=== PATIENT | female | born 1935 | race Caucasian/White ===

== ENCOUNTER → 2024-03-14 14:12 | Outpatient (REF) | payer MEDICARE, OTHER, SELFPAY ==
[2024-03-14 14:26] LABS: Hematocrit 28.3 % (37.0-47.0); Hemoglobin 9.5 g/dL (12.0-16.0); Mean Corp Hgb Conc. 33.6 g/dL (33.0-37.0); Mean Corpuscular Hgb 29.3 pg (27.0-31.0); Mean Corpuscular Volume 87.3 fL (81.0-99.0); Mean Platelet Volume 10.8 fL (7.4-10.4); Platelet Count 232 10^3/uL (130-400); Red Blood Cell Count 3.24 10^6/uL (4.20-5.40); Red Cell Dist. Width 13.6 % (11.5-14.5)
[2024-03-14 14:46] LABS: ALT (SGPT) 11 U/L (0-35); AST (SGOT) 22 U/L (14-36); Albumin 3.2 g/dl (3.5-5.0); Alkaline Phosphatase 66 U/L (38-126); Blood Urea Nitrogen 30 mg/dl (7-17); Carbon Dioxide 19 mmol/L (22-30); Chloride 111 mmol/L (98-107); Glucose 77 mg/dl (70-99); Potassium 5.5 mmol/L (3.5-5.1); Sodium 137 mmol/L (135-145); Total Bilirubin 0.2 mg/dl (0.2-1.3); Total Protein 5.6 g/dl (6.3-8.2); eGFR 39.55
[2024-03-14 15:04] LABS: Free T4 1.05 ng/dl (0.78-2.19); Vitamin D, 25-OH*** 81.6 ng/mL (30-80)
[2024-03-14 15:17] LABS: TSH 1.39 uIU/ml (0.47-4.68)
== END ==
LOC: OLABLV 14:12
PROVIDERS: ATTENDING PHYSICIAN Nurse Practitioner Gerontology
DX: I10 Essential (primary) hypertension (principal); F03.B18 Unspecified dementia, moderate, with other behavioral disturbance; Z13.29 Encounter for screening for other suspected endocrine disorder; E55.9 Vitamin D deficiency, unspecified; Q39.3 Congenital stenosis and stricture of esophagus; K21.9 Gastro-esophageal reflux disease without esophagitis
CPT/HCPCS: 36415; 80053; 82306; 84439; 84443; 85027

== ENCOUNTER → 2024-03-28 12:38 | Outpatient (REF) | payer MEDICARE, OTHER, SELFPAY ==
[2024-03-28 14:29] LABS: Potassium 5.7 mmol/L (3.5-5.1)
== END ==
LOC: OLABLV 12:38
PROVIDERS: ATTENDING PHYSICIAN Nurse Practitioner Gerontology; FAMILY PHYSICIAN Family Medicine
DX: E87.5 Hyperkalemia (principal)
CPT/HCPCS: 36415; 84132

== ENCOUNTER → 2024-05-09 11:43 | Outpatient (REF) | payer MEDICARE, OTHER, SELFPAY ==
[2024-05-09 12:54] LABS: Blood Urea Nitrogen 25 mg/dl (7-17); Calcium 9.1 mg/dl (8.4-10.2); Carbon Dioxide 20 mmol/L (22-30); Chloride 110 mmol/L (98-107); Glucose 81 mg/dl (70-99); Potassium 4.4 mmol/L (3.5-5.1); Sodium 141 mmol/L (135-145); eGFR 48.33
== END ==
LOC: OLABLV 11:43
PROVIDERS: ATTENDING PHYSICIAN Nurse Practitioner Gerontology; FAMILY PHYSICIAN Family Medicine
DX: I10 Essential (primary) hypertension (principal); E87.5 Hyperkalemia; N18.1 Chronic kidney disease, stage 1
CPT/HCPCS: 36415; 80048

== ENCOUNTER 2024-05-14 07:40 | Emergency (ER) | payer MEDICARE, OTHER, SELFPAY ==
[2024-05-14 07:43] VITALS: BP 117/58
[2024-05-14 07:49] VITALS: BP 117/58
[2024-05-14 08:00] VITALS: BP 107/51
--- NOTE | 2024-05-14 08:12 | ED.GENMED ---
History of Present Illness
General
Chief Complaint: Skin Surface Trauma
Time Seen by Provider: 05/14/24 07:43
History of Present Illness
History of Present Illness:
88-year-old female with history of dementia presents from [facility] for a witnessed fall. She was found this morning by staff to have blood on her right parietal scalp and blood was noted on her bathroom floor. The patient can provide no
history secondary to dementia. She is not on anticoagulants
Past History
Past History
ED Past Medical History: GERD, HTN and Other (Dementia)
ED Past Surgical History: Other (Hernia,)
Social History
Tobacco: Former smoker
Alcohol: Occasional
Drug: None
Personal:
Living: alone (Has a director of medicare)
Employment: Retired
Review of Systems
Review of Systems
Allergies reviewed?: Yes
All Other Systems: ROS reviewed and negative except as documented in HPI and ROS
Phy Exam
Physical Exam
Physical Exam:
GEN: Well appearing, NAD, WDWN
Eyes: PERRLA, EOMs intact, no scleral icterus
HENT: 2.5 cm linear laceration to the right parietal/occipital scalp with no active bleeding, no associated hematoma, oral mucosa moist
Lungs: CTAB, no wheezes, rales, rhonchi, normal chest wall excursion
Cardiac: RRR, no M/R/G, no peripheral edema. Radial pulses 2+ bilat
Neuro: Alert, follows commands, profoundly disoriented at baseline
MSK: No gross deformity or ecchymosis. No edema. No digital clubbing
Skin: No rashes, petechiae. Normal color, no pallor or jaundice.
Psych: Calm, cooperative, proper hygiene
Course
Orders/Labs/Results
Orders:
Orders
05/14/24 08:05
CT Head W/o Iv Contrast Urgent
Comment:
Reason For Exam: fall head injury
Vital Signs
Initial and Last Documented VS:
Initial Vital Signs
Temp Pulse Resp BP Pulse Ox
97.6 F 63 16 117/58 95
05/14/24 07:43 05/14/24 07:43 05/14/24 07:43 05/14/24 07:43 05/14/24 07:43
Last Documented Vital Signs
Temp Pulse Resp BP Pulse Ox
97.6 F 56 22 107/51 96
05/14/24 07:43 05/14/24 08:45 05/14/24 08:45 05/14/24 08:00 05/14/24 08:45
Procedures
Laceration Closure
Right Scalp:
Status of Wound: clean
Size of Wound in cm: 2.5
Description of Wound Edges: sharp
Preparation: cleaned with saline
Anesthesia: 1% Lidocaine with epi
Wound exploration: explored to base- no FB
Type of Closure: single layer closure
Skin Closure Material: skin saige
Number of sutures: 5
MDM/Problems Addressed
MDM/Problems Addressed:
Wound reapproximated with saige. CT of the head shows no acute abnormalities. Patient is able to ambulate in the emergency department and has no other physical exam findings concerning for trauma. Discharged in stable condition into the care of
her son to take her back to her nursing facility
*Critical Care Note
Total Time (30-74mins, 75-104mins- exclusive of procedures): Not Applicable
ED Attending Note
-
Portions of this chart may have been created with voice recognition software.� Occasional wrong word or��sound alike� substitutions may have occurred due to the inherent limitations of voice recognition software.
Discharge Plan
Departure
Patient Disposition: Home (Routine Discharge)
Date of Disposition: 05/14/24
Time of Disposition: 08:50
Patient with high blood pressure during this ER visit?: No
Discharge Problem:
Laceration of scalp
Instructions: Laceration Repair With Sagle (DC)
Prescriptions:
No Action
pantoprazole 40 MG tablet,delayed release (DR/EC)
40 mg PO DAILY
conjugated estrogens [Premarin] 1 APPLIC cream
1 applic vaginal MOTH
lisinopril 10 MG tablet
10 mg PO DAILY
cholecalciferol (vitamin D3) 1,000 UNITS tablet
5,000 units PO DAILY
levofloxacin 500 MG tablet
500 mg PO DAILY Qty: 5 0RF
Referrals:
Pamella Kim CRNP [Family Provider] -
Activity Restrictions/Additional Instructions:
Staple removal in 5-7 days
Interventions
Interventions:
*Risk Screen - Suicide Last Done: 05/14/24 07:43
*General Assessment Last Done: 05/14/24 07:43
*Neglect/Abuse Screening Last Done: 05/14/24 07:43
*ED COVID-19 Vaccine History Last Done: 05/14/24 07:43
ED-Skin Assessment Last Done: 05/14/24 08:13
Discharge Date and Time
Print Language: HUNGARIAN
== END 2024-05-14 09:18 | disposition home or self-care (01) ==
LOC: EMR 07:40
PROVIDERS: EMERGENCY PHYSICIAN Emergency Medicine; FAMILY PHYSICIAN Nurse Practitioner Gerontology
DX: S01.01XA Laceration without foreign body of scalp, initial encounter (principal); W18.30XA Fall on same level, unspecified, initial encounter; Y92.129 Unspecified place in nursing home as the place of occurrence of the external cause; F03.90 Unspecified dementia, unspecified severity, without behavioral disturbance, psychotic disturbance, mood disturbance, and anxiety; I10 Essential (primary) hypertension; K21.9 Gastro-esophageal reflux disease without esophagitis; Z87.891 Personal history of nicotine dependence
CPT/HCPCS: 99284; 12001; 70450

== ENCOUNTER 2024-08-09 17:59 | Emergency (ER) | payer MEDICARE, OTHER, SELFPAY ==
[2024-08-09 18:02] VITALS: BP 129/65
--- NOTE | 2024-08-09 18:51 | ED.GENMED ---
History of Present Illness
General
Chief Complaint: Fall
Time Seen by Provider: 08/09/24 18:38
History of Present Illness
History of Present Illness:
88-year-old female with history of severe dementia presents from [facility] after an unwitnessed fall. Noted to have a laceration to the left side of the head. History profoundly limited due to patient's severe dementia
Past History
Past History
ED Past Medical History: GERD, HTN and Other (Dementia)
ED Past Surgical History: Other (Hernia,)
Social History
Tobacco: Former smoker
Alcohol: Occasional
Drug: None
Personal:
Living: alone (Has a critical care cns)
Employment: Retired
Review of Systems
Review of Systems
Allergies reviewed?: Yes
All Other Systems: ROS reviewed and negative except as documented in HPI and ROS
Phy Exam
Physical Exam
Physical Exam:
GEN: Well appearing, NAD, WDWN
Eyes: PERRLA, EOMs intact, no scleral icterus
HENT: 2 cm vertical laceration to the left frontoparietal scalp oral mucosa moist. No midline cervical spine tenderness
Lungs: CTAB, no wheezes, rales, rhonchi, normal chest wall excursion
Cardiac: RRR, no M/R/G, no peripheral edema. Radial pulses 2+ bilat
Abdomen: S, NT, ND, NABS, no masses or hepatosplenomegaly
Neuro: Alert, severely disoriented, does not always follow commands, moves all extremities freely
MSK: No gross deformity or ecchymosis. No midline spinal tenderness from cervical through thoracic and lumbar spines. Pelvis stable, range of motion of the hip seems normal however she does have pain with range of motion of the left hip
Skin: No rashes, petechiae. Normal color, no pallor or jaundice.
Psych: Calm, cooperative, proper hygiene
Course
Orders/Labs/Results
Orders:
Orders
08/09/24 18:50
CT Cervical Spine W/o Iv Contr Urgent
Comment:
Reason For Exam: fall unwitnessed
CT Head W/o Iv Contrast Urgent
Comment:
Reason For Exam: fall head injury
CR Hip - LT w/wo Pel 2-3 Vw* Urgent
Comment:
Reason For Exam: fall
Include a pelvis x-ray?: Yes
Vital Signs
Initial and Last Documented VS:
Initial Vital Signs
Temp Pulse Resp BP Pulse Ox
97.9 F 59 20 129/65 98
08/09/24 18:02 08/09/24 18:02 08/09/24 18:02 08/09/24 18:02 08/09/24 18:02
Last Documented Vital Signs
Temp Pulse Resp BP Pulse Ox
97.9 F 59 20 129/65 98
08/09/24 18:02 08/09/24 18:02 08/09/24 18:02 08/09/24 18:02 08/09/24 18:02
Procedures
Laceration Closure
Left Scalp:
Status of Wound: clean
Size of Wound in cm: 2
Description of Wound Edges: sharp
Preparation: cleaned with soap & water
Anesthesia: 1% Lidocaine with epi
Wound exploration: explored to base- no FB
Type of Closure: single layer closure
Skin Closure Material: skin saige
Number of sutures: 3
MDM/Problems Addressed
MDM/Problems Addressed:
Imaging grossly unremarkable. Will be discharged back to [facility]. Saieg placed to the wound on the scalp
*Critical Care Note
Total Time (30-74mins, 75-104mins- exclusive of procedures): Not Applicable
ED Attending Note
-
Portions of this chart may have been created with voice recognition software.� Occasional wrong word or��sound alike� substitutions may have occurred due to the inherent limitations of voice recognition software.
Discharge Plan
Departure
Patient Disposition: Home (Routine Discharge)
Date of Disposition: 08/09/24
Time of Disposition: 21:26
Patient with high blood pressure during this ER visit?: No
Discharge Problem:
Laceration of scalp
Instructions: Laceration Repair With Saige (DC)
Prescriptions:
No Action
quetiapine 25 mg Tablet
25 mg PO QPM
polyethylene glycol 3350 [Miralax] 17 gram Powder In Packet
17 g PO Q48H
sucralfate 100 mg/mL Suspension
10 ml PO HS
donepezil 10 mg Tablet
10 mg PO QPM
dextromethorphan-guaifenesin 10-200 mg/5 mL Liquid
10 ml PO Q4HPRN PRN (Reason: cough)
pantoprazole 20 mg Tablet,Delayed Release (Dr/Ec)
20 mg PO DAILY
hydrocortisone 1 % Cream
1 applic TOPICAL Q6HPRN PRN (Reason: itching)
cholecalciferol (vitamin D3) 125 mcg (5,000 unit) Tablet
125 mcg PO DAILY
Referrals:
Pamella Kim CRNP [Family Provider] -
Activity Restrictions/Additional Instructions:
Staple removal in 5 days
Interventions
Interventions:
*Risk Screen - Suicide Last Done: 08/09/24 18:13
*General Assessment Last Done: 08/09/24 18:13
*Neglect/Abuse Screening Last Done: 08/09/24 18:13
*ED COVID-19 Vaccine History Last Done: 08/09/24 18:13
ED-Musculoskeletal Assessment Last Done: 08/09/24 18:13
ED- Neurological Assessment Last Done: 08/09/24 18:04
ED-Skin Assessment Last Done: 08/09/24 18:13
Discharge Date and Time
Print Language: NICARAGUAN
[2024-08-09 22:31] VITALS: BP 128/88
== END 2024-08-09 23:23 | disposition home or self-care (01) ==
LOC: EMR 17:59
PROVIDERS: EMERGENCY PHYSICIAN Emergency Medicine; FAMILY PHYSICIAN Nurse Practitioner Gerontology
DX: S01.01XA Laceration without foreign body of scalp, initial encounter (principal); W19.XXXA Unspecified fall, initial encounter; F03.C0 Unspecified dementia, severe, without behavioral disturbance, psychotic disturbance, mood disturbance, and anxiety; K21.9 Gastro-esophageal reflux disease without esophagitis; I10 Essential (primary) hypertension; Z87.891 Personal history of nicotine dependence
CPT/HCPCS: 99284; 12001; 70450; 72125; 73502

== ENCOUNTER → 2024-11-21 10:31 | Outpatient (REF) | payer MEDICARE, OTHER, SELFPAY ==
[2024-11-21 11:11] LABS: % Basophils 0.8 % (0-2); % Eosinophils 4.5 % (0-6); % Immature Granulocytes 0.2 % (0-0.5); % Monocytes 9.2 % (1.7-9.3); % Neutrophils 43.3 % (42.2-75.2); Absolute Basophils 0.1 10^3/uL (0-0.2); Absolute Eosinophils 0.3 10^3/uL (0-0.7); Absolute Lymphocytes 2.5 10^3/uL (1.2-3.4); Absolute Monocytes 0.6 10^3/uL (0.1-0.6); Absolute Neutrophils 2.6 10^3/uL (1.4-6.5); Hematocrit 33.6 % (37.0-47.0); Hemoglobin 10.8 g/dL (12.0-16.0); Mean Corp Hgb Conc. 32.1 g/dL (33.0-37.0); Mean Corpuscular Hgb 28.9 pg (27.0-31.0); Mean Corpuscular Volume 89.8 fL (81.0-99.0); Mean Platelet Volume 10.8 fL (7.4-10.4); Nucleated Red Blood Cells % 0 %; Platelet Count 240 10^3/uL (130-400); Red Blood Cell Count 3.74 10^6/uL (4.20-5.40); Red Cell Dist. Width 15.3 % (11.5-14.5)
[2024-11-21 12:23] LABS: Vitamin D, 25-OH*** 88.4 ng/mL (30-80)
[2024-11-21 12:37] LABS: TSH Reflex To Free T4 1.26 uIU/ml (0.47-4.68)
[2024-11-21 12:38] LABS: Glycohemoglobin (HgbA1c) 5.3 % (4.0-5.6)
[2024-11-21 13:04] LABS: ALT (SGPT) 11 U/L (0-35); AST (SGOT) 19 U/L (14-36); Albumin 3.9 g/dl (3.5-5.0); Alkaline Phosphatase 70 U/L (38-126); Blood Urea Nitrogen 24 mg/dl (7-17); Calcium 9.5 mg/dl (8.4-10.2); Carbon Dioxide 16 mmol/L (22-30); Chloride 111 mmol/L (98-107); Glucose 83 mg/dl (70-99); Potassium 4.4 mmol/L (3.5-5.1); Sodium 141 mmol/L (135-145); Total Bilirubin 0.4 mg/dl (0.2-1.3); Total Protein 6.5 g/dl (6.3-8.2); eGFR 53.85
== END ==
LOC: OLABLV 10:31
PROVIDERS: ATTENDING PHYSICIAN Nurse Practitioner Gerontology
DX: I10 Essential (primary) hypertension (principal); E55.9 Vitamin D deficiency, unspecified; K21.9 Gastro-esophageal reflux disease without esophagitis; F03.90 Unspecified dementia, unspecified severity, without behavioral disturbance, psychotic disturbance, mood disturbance, and anxiety; Z79.899 Other long term (current) drug therapy
CPT/HCPCS: 36415; 80053; 82306; 83036; 84443; 85025

== ENCOUNTER 2025-01-14 12:55 | Emergency (ER) | payer MEDICARE, OTHER, SELFPAY ==
[2025-01-14] VITALS (11 sets, daily range): BP systolic 94–133; BP diastolic 57–109; PULSE 49–116
--- NOTE | 2025-01-14 13:37 | ED.GENMED ---
History of Present Illness
General
Chief Complaint: Fainting/Passed Out
Source: patient
Exam Limitations: none
Time Seen by Provider: 01/14/25 13:20
Nursing documentation reviewed up to this point in time: agreed with
History of Present Illness
History of Present Illness:
Patient with history of dementia, presents to ED after witnessed syncopal episode while sitting on the bench this afternoon. Per report, patient may have passed out for 'seconds' and regained consciousness spontaneously. Upon arrival, patient is
alert, awake, but confused. Patient has no recollection of the event. Patient otherwise has no complaints. Denies headache. Denies chest pain. Denies shortness of breath. Denies nausea or vomiting. Denies abdominal pain. Denies weakness.
Denies dizziness. Per nursing staff at [place], patient had told staff member that she needed to have bowel movement when she passed out. When she regained consciousness, patient immediately had a large bowel movement.
Past History
Past History
ED Past Medical History: GERD, HTN and Other (Dementia)
ED Past Surgical History: Other (Hernia,)
Social History
Tobacco: Former smoker
Alcohol: Occasional
Drug: None
Personal:
Living: alone (Has a respiratory care technician)
Employment: Retired
Review of Systems
Review of Systems
Allergies reviewed?: Yes
Unable to obtain full review of systems at this time due to: dementia
All Other Systems: Not applicable
Phy Exam
Physical Exam
Physical Exam:
Physical Exam
General: no apparent distress, not acutely ill. afebrile
Head: nc/at. eomi
Neck: supple. normal range of motion
Heart: s1/s2 regular rate and rhythm, no murmur.
Lungs: no acute respiratory distress. clear bilaterally. chest wall nontender to palpation
Abdomen: normal bowel sounds. not tender.
Neuro: alert and oriented x 1. no focal neurological deficits
Skin: no rash
Psychiatric: well kept. interactive and cooperative but confused
Extremities: no edema. no calf tenderness.
Course
Orders/Labs/Results
Orders:
Orders
01/14/25 12:58
EKG [Electrocardiogram (*1)] Urgent
Reason for Study: Syncope
01/14/25 12:59
EKG- Treatment ONCE
01/14/25 13:27
CBC/With Diff [Complete Blood Count/With Diff] Urgent
CMP [Comprehensive Metabolic Panel] Urgent
Troponin I Urgent
01/14/25 13:37
Orthostatic VS- Treatment ONCE
01/14/25 15:01
0.9% Sodium Chloride 500 ml [Nss] 500 ml IV BOLUS
01/14/25 15:16
Urinalysis Reflex To Culture Urgent
Date Specimen was Collected: 01/14/25
Time Specimen was Collected: 15:14
Urine Microscopic Reflex Cult Urgent
Urine Culture Urgent
KEIKO Source: U
Specimen Description:
Date Specimen was Collected: 01/14/25
Time Specimen was Collected: 15:14
Abnormal Lab Results
01/14/25 01/14/25
13:27 15:16
RBC 3.62 L 10^6/uL
(4.20-5.40)
Hgb 10.9 L g/dL
(12.0-16.0)
Hct 33.5 L %
(37.0-47.0)
MCHC 32.5 L g/dL
(33.0-37.0)
Chloride 111 H mmol/L
(98-107)
BUN 29 H mg/dl
(7-17)
Creatinine 1.2 H mg/dL
(0.6-1.0)
Glucose 106 H mg/dl
(70-99)
Total Protein 6.2 L g/dl
(6.3-8.2)
Urine Bacteria (Reflex) Moderate A
(Negative)
Urine Albumin (Reflex) 1+ A
(Neg - Trace)
01/14/25 13:27
01/14/25 13:27
Vital Signs
Initial and Last Documented VS:
Initial Vital Signs
Pulse Resp BP
59 14 94/69
01/14/25 13:05 01/14/25 13:05 01/14/25 13:05
Last Documented Vital Signs
Temp Pulse Resp BP Pulse Ox
97.6 F 67 20 113/96 98
01/14/25 13:07 01/14/25 15:15 01/14/25 15:24 01/14/25 15:58 01/14/25 15:58
MDM/Problems Addressed
MDM/Problems Addressed:
Patient with brief loss of consciousness, likely vasovagal response from urge to have bowel movement versus dehydration versus arrhythmia versus others. No injuries noted from syncopal episode. Episode of syncope lasted only 'seconds' witnessed by
nursing staff. Patient remained stable during extended course of observation ED, along with unremarkable workup. As patient has underlying dementia, with intermittent episodes of agitation and not following commands in ED, I feel that it would be
in patient's best interest to return her back to custodial for continual care.
Discussed with patient's son, Jett James, via phone and informed him of decision to discharge patient back to [facility].
*EKG
Interpreted by ED Provider?: Yes
EKG Intrepretation Date: 01/14/25
Heart Rate: 63
Rate: normal
Rhythm: sinus
*Critical Care Note
Total Time (30-74mins, 75-104mins- exclusive of procedures): Not Applicable
ED Attending Note
-
Portions of this chart may have been created with voice recognition software.� Occasional wrong word or��sound alike� substitutions may have occurred due to the inherent limitations of voice recognition software.
Discharge Plan
Departure
Patient Disposition: Senior Living/SNF
Date of Disposition: 01/14/25
Time of Disposition: 17:49
Patient with high blood pressure during this ER visit?: No
Discharge Problem:
Syncope
Instructions: Syncope (Fainting) (DC)
Prescriptions:
No Action
quetiapine 25 mg Tablet
25 mg PO QPM
polyethylene glycol 3350 [Miralax] 17 gram Powder In Packet
17 g PO Q48H
sucralfate 100 mg/mL Suspension
10 ml PO HS
donepezil 10 mg Tablet
10 mg PO QPM
dextromethorphan-guaifenesin 10-200 mg/5 mL Liquid
10 ml PO Q4HPRN PRN (Reason: cough)
pantoprazole 20 mg Tablet,Delayed Release (Dr/Ec)
20 mg PO DAILY
hydrocortisone 1 % Cream
1 applic TOPICAL Q6HPRN PRN (Reason: itching)
cholecalciferol (vitamin D3) 125 mcg (5,000 unit) Tablet
125 mcg PO DAILY
Referrals:
UNKNOWN - PT NOT,INTERVIEWE [Family Provider] -
Activity Restrictions/Additional Instructions:
As discussed, you are being transferred back to custodial for continual care
Interventions
Interventions:
*Risk Screen - Suicide Last Done: 01/14/25 13:07
*General Assessment Last Done: 01/14/25 13:07
*Neglect/Abuse Screening Last Done: 01/14/25 13:07
*ED- Fall Risk Assessment Last Done: 01/14/25 13:07
*ED COVID-19 Vaccine History Last Done: 01/14/25 13:07
*Nursing Disposition Last Done: 01/14/25 19:04
ED- Cardiac Assessment Last Done: 01/14/25 13:10
ED- Neurological Assessment Last Done: 01/14/25 13:10
Discharge Date and Time
Discharge Date/Time: 01/14/25 19:05
Print Language: THAI
[2025-01-14 13:40] LABS: % Basophils 0.8 % (0-2); % Eosinophils 2.2 % (0-6); % Immature Granulocytes 0.2 % (0-0.5); % Lymphocytes 21.2 % (20.5-51.1); % Monocytes 6.5 % (1.7-9.3); % Neutrophils 69.1 % (42.2-75.2); Absolute Basophils 0.1 10^3/uL (0-0.2); Absolute Eosinophils 0.1 10^3/uL (0-0.7); Absolute Lymphocytes 1.3 10^3/uL (1.2-3.4); Absolute Monocytes 0.4 10^3/uL (0.1-0.6); Absolute Neutrophils 4.3 10^3/uL (1.4-6.5); Hematocrit 33.5 % (37.0-47.0); Hemoglobin 10.9 g/dL (12.0-16.0); Mean Corp Hgb Conc. 32.5 g/dL (33.0-37.0); Mean Corpuscular Hgb 30.1 pg (27.0-31.0); Mean Corpuscular Volume 92.5 fL (81.0-99.0); Nucleated Red Blood Cells % 0 %; Red Blood Cell Count 3.62 10^6/uL (4.20-5.40); White Blood Cell Count 6.3 10^3/uL (4.8-10.8)
[2025-01-14 13:48] LABS: ALT (SGPT) 13 U/L (0-35); AST (SGOT) 21 U/L (14-36); Albumin 3.6 g/dl (3.5-5.0); Alkaline Phosphatase 58 U/L (38-126); Blood Urea Nitrogen 29 mg/dl (7-17); Carbon Dioxide 24 mmol/L (22-30); Chloride 111 mmol/L (98-107); Estimated Creatinine Clearance 25 ml/min; Glucose 106 mg/dl (70-99); Potassium 4.6 mmol/L (3.5-5.1); Sodium 142 mmol/L (135-145); Total Bilirubin 0.3 mg/dl (0.2-1.3); Total Protein 6.2 g/dl (6.3-8.2); eGFR 43.27
[2025-01-14 13:58] LABS: Troponin I < 0.012 ng/ml
[2025-01-14 14:12] LABS: Mean Platelet Volume 10.3 fL (7.4-10.4); Platelet Count 201 10^3/uL (130-400)
[2025-01-14] MEDS: NSS 500 IV (15:18)
[2025-01-14 15:49] LABS: Urine Albumin 1+ (Neg - Trace); Urine Bilirubin Negative (Negative); Urine Character Clear (Clear); Urine Color Yellow; Urine Glucose Negative (Negative); Urine Ketone Negative (Negative); Urine Leukocyte Negative (Negative); Urine Nitrite Negative (Negative); Urine Occult Blood Negative (Negative); Urine Urobilinogen Negative (Neg - 1+)
[2025-01-14 15:57] LABS: Urine Mucus Moderate; Urine Squamous Cell 26-30 /LPF (Few)
[2025-01-14 15:58] LABS: Urine Bacteria Moderate (Negative); Urine Red Blood Cell 0-2 /HPF (0-2); Urine White Cell 0-2 /HPF (0-5)
== END 2025-01-14 19:05 ==
LOC: EMR 12:55
PROVIDERS: EMERGENCY PHYSICIAN Emergency Medicine
DX: R55 Syncope and collapse (principal); I10 Essential (primary) hypertension; F03.911 Unspecified dementia, unspecified severity, with agitation; K21.9 Gastro-esophageal reflux disease without esophagitis; Z87.891 Personal history of nicotine dependence
CPT/HCPCS: 99284; 80053; 81003; 81015; 84484; 85025; 87086; 93005

== ENCOUNTER → 2025-02-14 13:30 | Outpatient (REF) | payer MEDICARE, OTHER, SELFPAY ==
[2025-02-14 17:17] LABS: Urine Albumin Negative (Neg - Trace); Urine Bilirubin Negative (Negative); Urine Character Clear (Clear); Urine Color Yellow; Urine Glucose Negative (Negative); Urine Ketone Negative (Negative); Urine Leukocyte 3+ (Negative); Urine Nitrite Negative (Negative); Urine Occult Blood Negative (Negative); Urine Urobilinogen Negative (Neg - 1+)
[2025-02-14 17:40] LABS: Urine Mucus Few; Urine Squamous Cell >30 /LPF (Few)
[2025-02-14 17:41] LABS: Urine Bacteria Moderate (Negative); Urine Red Blood Cell 0-2 /HPF (0-2); Urine White Cell 50-60 /HPF (0-5); Urine Yeast Few (Negative)
== END ==
LOC: OLABLV 13:30
PROVIDERS: ATTENDING PHYSICIAN Nurse Practitioner Gerontology
DX: N39.0 Urinary tract infection, site not specified (principal)
CPT/HCPCS: 81003; 81015; 87086